=== PATIENT | female | born 1960 | race Caucasian/White ===

== ENCOUNTER 2025-03-12 20:44 | Inpatient (IN) | payer MEDICARE, MEDICAID ==
[~2025-03-12] VITALS: Ht 162.6 cm; Wt 87.8 kg
[~2025-03-12 20:44] MED LIST: BUPR-559 PO; ESTR42.510 TOP; LACT1CAP26 PO; LITH300C PO; MIRT-142 PO; MIRT7.5T11 PO; TIRZ5PEN SQ; heparin 10,000 units/1 ML INJ ONE
--- NOTE | 2025-03-12 20:53 | Physician Documentation ---
History of Present Illness ~ Chief Complaint: Chest Pain Stated Complaint: CP Time Seen by MD: 20:51 HPI 64-year-old female presenting as a field called STEMI alert Per EMS, the patient developed chest pain earlier today around 1:[address]-elevation in the inferior leads. Here in the ED, she continues to report central chest pressure. She states she did have some pain that went down her left arm but not currently. She reports associated nausea and a feeling of shortness of breath. No fevers, vomiting, abdominal pain, leg pain or swelling, or other new or different symptoms. She did have a CABG about a month or 2 ago. She denies any chest pain since that surgery. Medication Reconciliation Allergies: Coded Allergies: alprazolam (Verified Allergy, Intermediate, "MAKES ME IRRITABLE", 03/12/25) Scheduled Bupropion HCl (Bupropion Xl), 1 TAB PO QAM, (Reported) Estradiol (Estradiol), 1 GM TOP DAILY, (Reported) Lactobacillus Rhamnosus (Culturelle), 1 CAP PO BID, (Reported) [place] Carbonate ([place] Carbonate), 3 CAP PO HS, (Reported) Mirtazapine (Remeron), 1 TAB PO HS, (Reported) Mirtazapine (Mirtazapine), 1 TAB PO HS, (Reported) Tirzepatide (Mounjaro), 0.5 ML SQ Q7D, (Reported) Past Medical History Past Medical History: Diabetes, Bipolar Patient History: FH: heart attack FATHER FH: lung cancer MOTHER Review of Systems Constitutional: Denies: fever Respiratory: Reports: shortness of breath Cardiovascular: Reports: chest pain, left arm pain Gastrointestinal: Reports: nausea Physical Exam Vital Signs: Temperature: 92.2, Source: Oral, Heart Rate: 106, Respiratory Rate: 15, BP: 144/76, Pulse Oximetry: 98, Weight: 87.800 Physical Exam General: This is a pleasant middle-aged woman, not in distress Heart: Mild tachycardic, appears regular Lungs: Clear breath sounds bilateral, normal work of breathing, normal oxygen saturation on room air Abdomen: Soft, nondistended, nontender all quadrants including in the epigastric region Extremities: Warm and well-perfused, no significant edema Neuro: Alert and oriented Psychiatric: Calm and cooperative with exam Progress Results/Orders Results/Orders Orders - NATALYA MARISCAL MD Chest,Single View (03/12/25 20:55) Monitor (03/12/25 20:55) Saline Lock (03/12/25 20:55) Oxygen (03/12/25 20:55) Hs Troponin I W Calculations (03/12/25 20:55) Hs Troponin I W Calculations (03/12/25 22:55) Hs Troponin I W Calculations (03/12/25 23:55) Heparin 25,000 Unit/250ml Bag (Heparin 2 (03/12/25 21:05) Heparin 10,000 Unit/Ml 1ml (Heparin 10,0 (03/12/25 21:05) Cbc/Diff (03/13/25 03:00) Cbc/Diff (03/14/25 03:00) Cbc/Diff (03/15/25 03:00) Cbc/Diff (03/16/25 03:00) Cbc/Diff (03/17/25 03:00) Page Hospitalist (03/12/25 21:13) Completed Orders - NATALYA MARISCAL MD Cbc/Diff (03/12/25 20:55) BMP (03/12/25 20:55) PBNP (03/12/25 20:55) Electrocardiogram (03/12/25 20:55) Pt Inr (03/12/25 21:01) PTT (03/12/25 21:01) Heparin 10,000 Unit/Ml 1ml (Heparin 10,0 (03/12/25 21:05) Heparin 25,000 Unit/250ml Bag (Heparin 2 (03/12/25 21:05) Heparin 10,000 Unit/Ml 1ml (Heparin 10,0 (03/12/25 21:05) Verapamil Inj (Verapamil Inj) (03/12/25 21:04) Lidocaine 1% 30ml Vial (Xylocaine 1% Via (03/12/25 21:04) Fentanyl/Pf (Fentanyl 0.05 Mg/Ml Syringe (03/12/25 21:04) Midazolam 1 Mg/Ml 2ml Inj. (Versed 1 Mg/ (03/12/25 21:04) Heparin 1,000unit/Ml 10ml Vial (Heparin (03/12/25 21:04) Iohexol 350mg/Ml 100ml (Omnipaque 350mg/ (03/12/25 21:04) Heparin 1,000 Units/Ns 500ml (Heparin 1, (03/12/25 21:05) Medications Received in ER Medications (Trade) Dose Ordered Sig/Lucina Route PRN Reason Start Time Stop Time Status Last Admin Dose Admin (heparin 10,000 unit/ml 1ml inj) 60 UNIT/KG BOLUS FOR INIT... ONCE ONCE IV 03/12/25 21:05 03/12/25 21:06 DC 03/12/25 21:11 4,000 UNITS Vital Signs 03/12/25 03/12/25 20:46 21:15 Temp 92.2 Pulse 106 102 Resp 15 17 B/P (MAP) 144/76 136/89 (105) Pulse Ox 98 99 Laboratory Tests Test 03/12/25 20:50 White Blood Count 7.4 Red Blood Count 4.93 Hemoglobin 13.4 Hematocrit 40.5 Mean Corpuscular Volume 82.2 Mean Corpuscular Hemoglobin 27.2 Mean Corpuscular Hemoglobin Concent 33.1 Red Cell Distribution Width 14.9 H Platelet Count 125 L Mean Platelet Volume 8.7 Neutrophils (%) (Auto) 58.1 Lymphocytes (%) (Auto) 33.0 Monocytes (%) (Auto) 7.0 Eosinophils (%) (Auto) 1.1 Basophils (%) (Auto) 0.8 Neutrophils # (Auto) 4.3 Lymphocytes # (Auto) 2.4 Monocytes # (Auto) 0.5 Eosinophils # (Auto) 0.1 Basophils # (Auto) 0.1 CBC Comment Prothrombin Time 11.3 INR International Normalized Ratio 1.1 Activated Partial Thromboplast Time 26 Coagulation Comments Sodium Level 139 Potassium Level 3.9 Chloride Level 107 Carbon Dioxide Level 27.0 Anion Gap 5 L Blood Urea Nitrogen 12 Creatinine 0.92 H Estimated GFR/1.73 m2 61 BUN/Creatinine Ratio 13.0 Glucose Level 153 H Calcium Level 8.9 Pro-B-Type Natriuretic Peptide 694 H Albumin 3.5 Chemistry Comments EKG/XRAY/CT/US/VASC/MRI EKG : Additional Comment I personally interpreted the EKG and this shows: Sinus tachycardic, rate 103, QTC 431, ST-elevation inferior leads, with Q-waves, ST inversion depression in the anterior leads. Possibly a STEMI, although she had a CABG recently which could cause changes. Pending previous EKG for comparison Consults/PCP Consults/PCP : Additional Comment Consult: Spoke to Dr. Bowman, cardiology. He will take the patient emergently to the laborer wrecking and salv[facility]. He does recommend heparin. Consult: I spoke to the internal medicine service, for admission in the hospital Medical Decision Making Additional Information The patient presents with chest pain, with a possible STEMI. Her EKG here in the ED is concerning for STEMI with new ST elevation in the inferior leads. Cardiology was present at bedside almost immediately, and plans for catheterization. She was started on heparin. She will be admitted. Departure Impression: Primary Impression: STEMI (ST elevation myocardial infarction) Additional Impression: Chest pain Referrals: NO PRIMARY CARE PROVIDER (PCP) Signature Scribe Signature: na Attestation: NATALYA Hughes MD Mar 12, 2025 20:53
--- NOTE | 2025-03-12 20:57 | ELECTROCARDIOGRAPH REPORT ---
[facility] Test Date: 2025-03-12 Test Time: 20:44:19 Pat Name: LOR LOU Department: EMERGENCY ROOM Room: Gender: F Exchange Clerk: LYUBOV : 1960 Requested By: NATALYA MARISCAL Order Number: [id number] Reading MD: Measurements Intervals [place] Rate: 106 P: 56 IA: 126 QRS: 60 QRSD: 93 T: 115 QT: 386 QTc: 513 Interpretive Statements Atrial-paced complexes Probable left atrial enlargement Inferior infarct, acute (RCA) Prolonged QT interval Probable RV involvement, suggest recording right precordial leads Please click the below link to view image of tracing.
[2025-03-12 21:04] LABS: MEAN PLATELET VOLUME 8.7 FL (7.4-10.4); RED CELL DISTRIBUTION WIDTH 14.9 % (11.5-14.5)
[2025-03-12] MEDS ORDERED: fentaNYL/PF 50MCG/1 ML 2ML syringe ONE (21:04)
[2025-03-12] MEDS ORDERED: midazolam 1 mg/ML 2ml injection ONE (21:04)
[2025-03-12] MEDS ORDERED: LIDOcaine 1% 30ml preserv. free vial ONE (21:04)
[2025-03-12] MEDS ORDERED: verapamil 2.5 mg/ml inj IV ONE (21:04)
[2025-03-12] MEDS ORDERED: heparin 1,000unit/ml 10ml vial 10 ML ONE (21:04)
[2025-03-12] MEDS ORDERED: heparin 25,000 UNIT/250ml bag 250 ML IV PRN (21:05)
[2025-03-12] MEDS ORDERED: heparin 10,000 units/1 ML INJ IV PRN (21:05)
[2025-03-12] MEDS: heparin 10,000 units/1 ML INJ IV ONE (21:11)
[2025-03-12 21:21] LABS: APTT 26 SECONDS (22-32); INR 1.1 INR
[2025-03-12 21:22] LABS: CREATININE 0.92 MG/DL (0.40-0.90); PRO BRAIN NATRIURETIC PEPTIDE 694 PG/ML (0-125); TOTAL CARBON DIOXIDE 27.0 MMOL/L (24-32); eCRCL 52 ML/MIN; eGFR 61 ML/MIN
[2025-03-12] MEDS ORDERED: iohexol 350 MG/ML 50ML vial IV ONE (21:33)
[2025-03-12] MEDS ORDERED: tirofiban 12.5mg in NS 250mL 250 ML IV ONE (21:51)
[2025-03-12] MEDS ORDERED: ondansetron/PF 4mg/2ml inj IV PRN (23:15)
[2025-03-12] MEDS ORDERED: HYDROcodone/acetaminophen 10/325mg tab PO PRN (23:20)
[2025-03-12 23:30] VITALS: BP 119/66; PULSE 91; RESP 12; TEMP 98.1; O2SAT 96
[2025-03-13] VITALS (8 sets, daily range): BP systolic 95–126; BP diastolic 59–71; PULSE 61–99; RESP 12–24; TEMP 97.7–99.3; O2SAT 95–98
--- NOTE | 2025-03-13 00:42 | RADIOLOGY REPORT ---
CHEST RADIOGRAPH Indication: CP Technique: Single frontal view of the chest was obtained COMPARISON: DI CHEST,SINGLE VIEW on DOS: 02/15/25, DI CHEST,SINGLE VIEW on DOS: 02/14/25, DI CHEST,SINGLE VIEW on DOS: 02/13/25, DI CHEST,SINGLE VIEW on DOS: 02/12/25, DI CHEST,SINGLE VIEW on DOS: 02/11/25 FINDINGS: Previous sternotomy. Lungs and pleural spaces are clear. Cardiac silhouette and larisa are within normal limits. Bones and soft tissues demonstrate no significant abnormality. IMPRESSION: No acute disease.
[2025-03-13 03:24] LABS: MEAN PLATELET VOLUME 8.4 FL (7.4-10.4); RED CELL DISTRIBUTION WIDTH 14.8 % (11.5-14.5)
[2025-03-13] MEDS: OXAZEpam 15mg capsule PO PRN (03:45)
[2025-03-13] MEDS: [UNRECOGNIZED DRUG - OTHER] VG SCH (08:00)
[2025-03-13] MEDS: BUPROPION HCL 150MG XL 24 HR 150 MG TAB PO SCH (10:22)
[2025-03-13] MEDS: aspirin 81mg, enteric-coated 1 TAB TABLET.DR PO SCH (10:24)
[2025-03-13] MEDS: lactobacillus rhamnosus 10,000 MMU CELLS/CAPSULE PO SCH (10:24)
[2025-03-13] MEDS: HYDROcodone/acetaminophen 5mg/325mg tablet PO PRN (16:55)
[2025-03-13] MEDS ORDERED: non-formulary drug (Mirtazapine 1 TAB) PO SCH (21:00)
[2025-03-14] VITALS (8 sets, daily range): BP systolic 93–114; BP diastolic 54–70; PULSE 75–94; RESP 16–22; TEMP 97.5–98.8; O2SAT 95–97
--- NOTE | 2025-03-14 01:57 | CARDIOLOGY REPORT ---
DATE OF SERVICE: 03/12/2025 DICTATING PHYSICIAN: Melissa Bowman MD CARDIAC CATHETERIZATION REPORT DATE OF STUDY: 03/12/2025 PROCEDURES: * Left heart catheterization. * Selective coronary angiography. * Selective left internal mammary artery angiography x 1. * Selective coronary artery bypass graft angiography x 1. * Angioplasty of the posterolateral branch of the saphenous vein graft to the posterolateral branch of the circumflex coronary artery. * Stenting x 1 of the saphenous vein graft to the posterolateral branch of the circumflex coronary artery. * Conscious sedation monitoring time for 45 minutes. INDICATION: STEMI. PHYSICIAN: Suleman Bowman MD DESCRIPTION OF PROCEDURE: After informed consent was obtained, the patient was brought to the lab where she was prepped and draped in the usual sterile fashion. A 6-Fijian sheath was inserted into the right femoral artery. Thereafter, using a JL4 catheter, selective coronary angiography of the left system was performed. Limited views were taken since the patient had angiography less than 2 months ago. A JR4 catheter was then used and selective coronary angiography of the right coronary artery was performed. The catheter was manipulated to engage the left subclavian and left internal mammary artery and selective angiography of the left internal mammary artery angiography was performed. Because of difficulty engaging the vein graft, the pigtail catheter was advanced into the left ventricle where left ventricular end-diastolic pressure was obtained. The pigtail catheter was pulled back to the ascending aorta and aortic root angiography performed. Next, using an XBC guiding catheter, the catheter was manipulated and the vein graft to the circumflex coronary artery was engaged and selective angiography of the vein graft performed. HEMODYNAMICS: For the patient's hemodynamics, please refer to the event log. Left ventricular end-diastolic pressure was 22 mmHg. FINDINGS: The left main coronary artery is a medium caliber vessel with mild luminal irregularities. The left anterior descending coronary artery has a 90% proximal stenosis at the takeoff of a small diagonal branch. Competitive flow in the mid LAD is noted. The circumflex coronary artery gives off an obtuse marginal branch with mild disease. The ongoing circumflex coronary artery at the distal end occludes abruptly. The right coronary artery is a medium caliber vessel with mild luminal irregularities. Left ventriculography was not performed. Left ventricular end-diastolic pressure was 22 mmHg. The left internal mammary artery to the LAD is widely patent. The vein graft to the posterolateral branch of the circumflex coronary artery is a large caliber vessel with NEHAL 0 flow. Percutaneous coronary intervention: Using an XBC guiding catheter, 0.014 ChoICE PT wire was navigated across the lesion. This was then angioplastied with a 2.0 x 12 mm balloon. Next, using a 2.0 x 12 mm [place] stent, the stent was advanced across the distal anastomosis where it was deployed to rated burst atmospheres. Follow up angiography revealed very good angiographic results with NEHAL 3 flow. IMPRESSION: * A 90% proximal LAD stenosis. The BENITEZ to the LAD is widely patent. * Mild luminal irregularities of the right coronary artery. * The ongoing circumflex coronary artery occludes abruptly distally. The vein graft to the posterolateral branch of the circumflex coronary artery is occluded at the distal anastomosis with NEHAL 0 flow. Following angioplasty and stenting with a 2.0 x 12 mm [place] stent, hoahaoism of flow and NEHAL 3 flow was noted. * Left ventricular end-diastolic pressure was 22 mmHg. Melissa Bowman MD TID: [id number] RECEIPT: [id number] ENA/SABRINA
[2025-03-14 06:21] LABS: MEAN PLATELET VOLUME 9.3 FL (7.4-10.4); RED CELL DISTRIBUTION WIDTH 14.4 % (11.5-14.5)
[2025-03-14] MEDS ORDERED: DEXTROSE 15 GM of carb/4 tabs (each vial/BOTTLE has 4 tablets) PO PRN ×2 (19:30)
[2025-03-14] MEDS ORDERED: dextrose 50%-water 50ml dispensing syringe IV PRN ×2 (19:30)
[2025-03-14] MEDS ORDERED: glucagon, human recombinant 1mg kit SUBCUT PRN (19:30)
[2025-03-14] MEDS: INSULIN LISPRO 100 UNIT/ML INSULN.PEN MULTI-DOSE SQ SCH (20:25)
[2025-03-14] MEDS: insulin glargine (Lantus) pen - multi-dose SQ SCH (20:26)
--- NOTE | 2025-03-15 00:21 | ELECTROCARDIOGRAPH REPORT ---
[facility] Test Date: 2025-03-15 Test Time: 00:17:47 Pat Name: LOR LOU Department: [facility] 3S Patient ID: [facility]-[id number] Room: [place] [id number] A Gender: F Emergency Services Director: : 1960 Requested By: JAQUAN HOUSTON Order Number: [id number] Reading MD: Dr. EVA Evans Measurements Intervals [place] Rate: 86 P: 0 TN: 126 QRS: 52 QRSD: 88 T: 118 QT: 383 QTc: 458 Interpretive Statements Sinus rhythm Probable left atrial enlargement Inferior infarct, acute (RCA) Probable RV involvement, suggest recording right precordial leads Electronically Signed On 03-15-2025 18:43:[address] EVA Evans Please click the below link to view image of tracing.
[2025-03-15 02:00] VITALS: BP 103/58; PULSE 87; RESP 20; TEMP 98.8; O2SAT 95
[2025-03-15 06:00] VITALS: BP 103/76; PULSE 85; RESP 16; TEMP 98.1; O2SAT 96
[2025-03-15 07:53] LABS: MEAN PLATELET VOLUME 9.0 FL (7.4-10.4); RED CELL DISTRIBUTION WIDTH 14.6 % (11.5-14.5)
[2025-03-15] MEDS: TIRZEPATIDE SQ SCH (08:36)
[2025-03-15 10:34] LABS: CREATININE 0.95 MG/DL (0.40-0.90); TOTAL CARBON DIOXIDE 23.4 MMOL/L (24-32); eCRCL 50 ML/MIN; eGFR 59 ML/MIN
[2025-03-15 11:00] VITALS: BP 138/43; PULSE 87; RESP 22; TEMP 98.5; O2SAT 96
[2025-03-15] MEDS ORDERED: METO25TA6 PO (11:48)
[2025-03-15] MEDS ORDERED: PANT40TA54 PO (11:48)
[2025-03-15] MEDS ORDERED: NUTR1PAC9 PO (11:57)
[2025-03-15] MEDS ORDERED: SENN-362 PO (11:57)
[2025-03-15] MEDS ORDERED: ATOR10TA87 PO (11:57)
[2025-03-15] MEDS ORDERED: AMIO200T76 PO (11:57)
[2025-03-15] MEDS ORDERED: APIX5TAB3 PO (11:57)
[2025-03-15] MEDS ORDERED: HYDR-3972 PO (11:58)
[2025-03-15] MEDS ORDERED: POLY119P2 PO (12:00)
[2025-03-15] MEDS ORDERED: TICA90TA PO (12:05)
[2025-03-15] MEDS ORDERED: ATOR40TA PO (12:05)
--- NOTE | 2025-03-15 12:41 | DISCHARGE SUMMARY ---
Discharge Summary Providers to CC ~ Discharge Summary Admission Diagnosis: STEMI Hospital Course DATE OF ADMISSION: 03/12/25 /DATE OF DISCHARGE: 03/15/25 Discharge Diagnosis\Comment: STEMI status post PCI of the SVG to the posterolateral branch of the circumflex Operations\Procedures: PROCEDURES: * Left heart catheterization. * Selective coronary angiography. * Selective left internal mammary artery angiography x 1. * Selective coronary artery bypass graft angiography x 1. * Angioplasty of the posterolateral branch of the saphenous vein graft to the posterolateral branch of the circumflex coronary artery. * Stenting x 1 of the saphenous vein graft to the posterolateral branch of the circumflex coronary artery. * Conscious sedation monitoring time for 45 minutes. Consultants: No consultants Complications: No complications Condition on DC: Stable New Medications: Atorvastatin Calcium* (Lipitor*) 40 Mg Tablet 1 TAB PO DAILY for 30 Days, #30 TAB Ticagrelor (Brilinta) 90 Mg Tablet 90 MG PO BID for 30 Days, #60 TAB 1 Refill Continued Medications: Amiodarone Hcl (Cordarone) 200 Mg Tablet 200 MG PO BID, TAB Apixaban (Eliquis) 5 Mg Tablet 5 MG PO BID, TAB Arginine/Glutamine/Calcium Hmb (Efren Packet) 7 Gram-7 Gram-1.5 Gram Powd.pack 7 GM PO BID Bupropion HCl (Bupropion Xl) 300 Mg Tab.er.24h 1 TAB PO QAM Estradiol (Estradiol) 0.01 % Cream.appl 1 GM TOP DAILY Hydrocodone Bit/Acetaminophen (Hydrocodon-Acetaminophn 10-325 tablet) 10mg- 325mg Tablet 1 TABLET PO Q4H PRN for moderate or severe pain 4-10, #20 TABLET Lactobacillus Rhamnosus (Culturelle) 10 Billion Cell Capsule 1 CAP PO BID for 30 Days, #30 CAP 0 Refills [place] Carbonate ([place] Carbonate) 300 Mg Capsule 3 CAP PO HS Metoprolol Tartrate (Metoprolol Tartrate) 25 Mg Tablet 0.5 TAB PO BID Mirtazapine (Remeron) 15 Mg Tablet 1 TAB PO HS for 30 Days, #30 TAB 0 Refills TAKE WITH MIRTAZIPINE 7.5 MG PO DAILY FOR A TOTAL OF 22.5 MG DAILY Mirtazapine (Mirtazapine) 7.5 Mg Tablet 1 TAB PO HS for 30 Days, #30 TAB 0 Refills TAKE WITH MIRTAZIPINE 15 MG PO DAILY FOR A TOTAL OF 22.5 MG PER DAY Pantoprazole Sodium (Pantoprazole Sodium) 40 Mg Tablet.dr 1 TAB PO DAILY Polyethylene Glycol 3350 (Miralax) 17 Gram/Dose Powder 17 GM PO DAILY for constipation, #255 GM 0 Refills dissolve in water Sennosides (Senna Lax) 8.6 Mg Tablet 2 TAB PO DAILY for CONSTIPATION Tirzepatide (Mounjaro) 5 Mg/0.5 Ml Pen.injctr 0.5 ML SQ Q7D Discontinued Medications: Atorvastatin Calcium* (Lipitor*) 10 Mg Tablet 1 TAB PO HS for 30 Days, #30 TAB Discharge Summary: Patient is a 64-year-old female with known history of coronary artery disease she is status post two-vessel CABG (BENITEZ to LAD, SVG to distal lCirc), diabetes, LV systolic dysfunction, manic depressive disorder, anxiety, obesity, hypertension. Recent admission discharged on February 17, 2025 after her CABG. Had postoperative atrial fibrillation and was discharged on amiodarone. Was discharged to [facility] rehab and was recently discharged from that facility. She presented on March 12 with complaints of chest pain. Found to have ST- elevation in the inferior leads and was taken emergently to the cardiac catheterization lab. Underwent PCI of the SVG to posterolateral branch of the circumflex artery with 2.0 x 12 mm onPostabon Brooks stent. Please see Dr. Jac bruno's dictation for further details on the procedure. She tolerated well. Was monitored in the telemetry unit. Has remained hemodynamically stable. Up and ambulatory. No reoccurrence of chest pain or pressure. Being discharged home on Brilinta 90 mg b.i.d.. Given that she is on Eliquis 5 mg b.i.d. we will not give aspirin. She will continue on metoprolol, amiodarone and atorvastatin 40 mg daily. She was highly encouraged to follow up with her hospital recruiter within the next week. She was also encouraged to follow up with her primary care emmanuelle gimenez. Education was provided on disease process. Activity restrictions. She verbalizes understanding. Physical exam prior to discharge: General: Awake, alert, oriented. No apparent distress Neck: Supple. Normal range of motion. No JVD Respiratory: Lungs are clear to auscultation bilaterally. No respiratory distress. Chest: Normal shape and size. No accessory muscle use. Cardiovascular: Regular rate and rhythm. S1-S2. No murmur, gallop, rub. Gastrointestinal: Abdomen is soft. Nontender to palpation. Bowel sounds present. Extremities: The right femoral cath site with ecchymosis. Dressing clean dry and intact. No hematoma. No swelling. No pain on palpation. Dorsalis pedis pulses plus two. Neurologic: Alert and oriented x4. Nonfocal Psychiatric: Normal mood and affect. Skin: Normal color. Warm and dry. Plan: Patient is being discharged home in stable condition. She will have her Brilinta and hand prior to discharge. Education provided to not miss any doses of her Brilinta. Case was discussed with Dr. Jca Bruno. In agreement with the above. *Problems/Diagnosis: (1) STEMI (ST elevation myocardial infarction) (2) Diabetes mellitus (3) CAD (coronary artery disease) (4) Tobacco abuse disorder Total Time Spent on D/C: > 30 Minutes Counseling Services Smoking & Tobacco Cessation: 3-10 Minutes WENDY LUU NP Mar 15, 2025 12:41
[2025-03-15 15:00] VITALS: BP 115/64; PULSE 93; RESP 18; TEMP 98.6; O2SAT 98
[2025-03-15] MEDS ORDERED: CLOP-32 PO (15:37)
== END 2025-03-15 17:34 | disposition home health service (06) | DRG 321 ==
LOC: ER 20:44 → PCU 3S 23:12
PROVIDERS: ADMIT Internal Medicine Interventional Cardiology; ATTEND Internal Medicine Interventional Cardiology
PROC: 027034Z Dilation of Coronary Artery, One Artery with Drug-eluting Intraluminal Device, Percutaneous Approach (ICD-10-PCS; principal; 2025-03-12)
PROC: 4A023N7 Measurement of Cardiac Sampling and Pressure, Left Heart, Percutaneous Approach (ICD-10-PCS; 2025-03-12)
PROC: B2111ZZ Fluoroscopy of Multiple Coronary Arteries using Low Osmolar Contrast (ICD-10-PCS; 2025-03-12)
PROC: B2151ZZ Fluoroscopy of Left Heart using Low Osmolar Contrast (ICD-10-PCS; 2025-03-12)
PROC: B2131ZZ Fluoroscopy of Multiple Coronary Artery Bypass Grafts using Low Osmolar Contrast (ICD-10-PCS; 2025-03-12)
PROC: B3101ZZ Fluoroscopy of Thoracic Aorta using Low Osmolar Contrast (ICD-10-PCS; 2025-03-12)
DX: T82.898A Other specified complication of vascular prosthetic devices, implants and grafts, initial encounter (principal); I21.29 ST elevation (STEMI) myocardial infarction involving other sites; I10 Essential (primary) hypertension; E11.9 Type 2 diabetes mellitus without complications; F31.9 Bipolar disorder, unspecified; I25.10 Atherosclerotic heart disease of native coronary artery without angina pectoris; I48.91 Unspecified atrial fibrillation; Y83.8 Other surgical procedures as the cause of abnormal reaction of the patient, or of later complication, without mention of misadventure at the time of the procedure; F41.9 Anxiety disorder, unspecified; K59.00 Constipation, unspecified; Z79.899 Other long term (current) drug therapy; Z88.8 Allergy status to other drugs, medicaments and biological substances; Y92.89 Other specified places as the place of occurrence of the external cause
CPT/HCPCS: 93459; 93567; 96374; 99285; C9606; 36415; 71045; 80048; 80053; 82948; 83036; 83735; 83880; 84484; 85025; 85610; 85730; 87081; 93005; 99152; 99153; A6213; A6258; A6449; C1725; C1751; C1760; C1769; C1874; C1887; G0378; J1644; J1815; J2003; J2250; J3010; J3246; J3490; Q9967